=== PATIENT | male | born 1965 | race Caucasian/White ===

== ENCOUNTER 2017-03-16 09:11 | Emergency (ER) | payer SELFPAY ==
[~2017-03-16] VITALS: Ht 177.8 cm; Wt 105.0 kg
[2017-03-16] MEDS ORDERED: METHADONE40 MG PO (09:43)
[2017-03-16] MEDS ORDERED: BACTRIM DS1 TAB PO (10:14)
[2017-03-16] MEDS ORDERED: CEPHALEXIN500 MG PO (10:14)
[2017-03-16 10:17] VITALS: BP 137/86
== END 2017-03-16 10:22 | disposition home or self-care (01) | DRG 607 ==
LOC: ED 09:11
PROC: 0H9BXZZ Drainage of Right Upper Arm Skin, External Approach (ICD-10-PCS; principal; 2017-03-16)
DX: S50.361A Insect bite (nonvenomous) of right elbow, initial encounter (principal); L02.413 Cutaneous abscess of right upper limb; W57.XXXA Bitten or stung by nonvenomous insect and other nonvenomous arthropods, initial encounter; B95.62 Methicillin resistant Staphylococcus aureus infection as the cause of diseases classified elsewhere

== ENCOUNTER 2019-04-11 | Emergency (ER) | payer SELFPAY ==
[~2019-04-11] MED LIST: BACTRIM DS1 TAB PO; CEPHALEXIN500 MG PO; METHADONE40 MG PO
[2019-04-11 14:31] LABS: HEMATOCRIT 48.7 % (39.0-50.0); HEMOGLOBIN 15.5 g/dl (14.0-18.0); IMMATURE GRANULOCYTES 0.4 % (0.0-5.0); MEAN CELL VOLUME 84.8 fL CALC (80.0-100.0); MEAN CORPUSCULAR HGB CONC 31.8 g/L CALC (32.0-36.0); NEUT# 11.03 thou/uL (1.82-7.42); RED BLOOD COUNT 5.74 mill/uL (4.70-6.10)
[2019-04-11 14:32] LABS: URINE BILIRUBIN - DIPSTICK NEGATIVE (NEGATIVE); URINE BLOOD DIPSTICK NEGATIVE (NEGATIVE); URINE COLOR YELLOW; URINE GLUCOSE - DIPSTICK NEGATIVE (NEGATIVE); URINE KETONE NEGATIVE (NEGATIVE); URINE LEUK ESTERASE NEGATIVE (NEGATIVE); URINE NITRITE - DIPSTICK NEGATIVE (Negative); URINE PROTEIN - DIPSTICK NEGATIVE (NEG-TRACE); URINE SPECIFIC GRAVITY 1.025; URINE UROBILINOGEN - DIPSTICK 0.2 E.U./dL (0.2)
[2019-04-11 14:40] LABS: ALBUMIN 4.4 g/dL (3.2-5.0); ALKALINE PHOSPHATASE 102 u/l (38-126); ANION GAP 17 (6-22 (CALC)); BILIRUBIN, TOTAL 0.6 mg/dL (0.0-1.4); BUN 16 mg/dL (9-20); BUN/CREATININE RATIO 19 (12-20 (CALC)); CARBON DIOXIDE 22 mmol/l (22-30); CHLORIDE 100 mmol/l (95-108); CREATININE 0.8 mg/dL (0.7-1.3); GFR > 60 ML/MIN (>=60 (CALC)); GFR FOR AFR.AMER. > 60 ML/MIN (>=60 (CALC)); LIPASE 72 u/l (23-300); POTASSIUM 3.7 mmol/l (3.5-5.1); SGOT/AST 36 u/l (17-59); SODIUM 135 mmol/l (137-146)
[2019-04-11] MEDS ORDERED: MIRALAX3350 N1 PO ×2 (16:44)
== END 2019-04-11 17:02 | disposition home or self-care (01) | DRG 392 ==
DX: K59.00 Constipation, unspecified (principal); F17.210 Nicotine dependence, cigarettes, uncomplicated

== ENCOUNTER 2019-04-12 | Emergency (ER) | payer SELFPAY ==
[~2019-04-12] MED LIST changes: +MIRALAX3350 N1 PO
== END 2019-04-12 13:46 | disposition left against medical advice (07) | DRG 392 ==
DX: K59.00 Constipation, unspecified (principal); R16.1 Splenomegaly, not elsewhere classified; R10.9 Unspecified abdominal pain; F17.210 Nicotine dependence, cigarettes, uncomplicated; Z91.19 Patient's noncompliance with other medical treatment and regimen

== ENCOUNTER 2019-04-13 | Emergency (ER) | payer SELFPAY ==
[2019-04-13 13:16] LABS: HEMATOCRIT 46.5 % (39.0-50.0); HEMOGLOBIN 14.8 g/dl (14.0-18.0); IMMATURE GRANULOCYTES 0.2 % (0.0-5.0); MEAN CELL VOLUME 85.6 fL CALC (80.0-100.0); MEAN CORPUSCULAR HGB 27.3 pG CALC (26.0-32.0); MEAN CORPUSCULAR HGB CONC 31.8 g/L CALC (32.0-36.0); NEUT# 8.04 thou/uL (1.82-7.42); RED BLOOD COUNT 5.43 mill/uL (4.70-6.10); RED CELL DISTRI WIDTH 14.2 % (11.5-15.5)
[2019-04-13 13:32] LABS: ALBUMIN 4.4 g/dL (3.2-5.0); ALKALINE PHOSPHATASE 87 u/l (38-126); ANION GAP 18 (6-22 (CALC)); BILIRUBIN, TOTAL 0.6 mg/dL (0.0-1.4); BUN 17 mg/dL (9-20); BUN/CREATININE RATIO 18 (12-20 (CALC)); CARBON DIOXIDE 28 mmol/l (22-30); CHLORIDE 95 mmol/l (95-108); CREATININE 0.9 mg/dL (0.7-1.3); GFR > 60 ML/MIN (>=60 (CALC)); GFR FOR AFR.AMER. > 60 ML/MIN (>=60 (CALC)); POTASSIUM 4.2 mmol/l (3.5-5.1); SGOT/AST 18 u/l (17-59); SODIUM 137 mmol/l (137-146); TOTAL PROTEIN 7.8 g/dL (6.3-8.2)
== END 2019-04-13 21:52 | disposition short-term general hospital (02) | DRG 816 ==
DX: R16.1 Splenomegaly, not elsewhere classified (principal); K59.00 Constipation, unspecified; F17.210 Nicotine dependence, cigarettes, uncomplicated
CPT/HCPCS: J0131

== ENCOUNTER 2019-12-14 01:09 | Emergency (ER) | payer SELFPAY ==
[~2019-12-14] VITALS: Ht 177.8 cm; Wt 87.6 kg
[2019-12-14] MEDS ORDERED: HYDROXYZ HCL25 MG PO (01:36)
[2019-12-14] MEDS ORDERED: STERAPRED DS10 MG PO (01:36)
[2019-12-14 01:40] VITALS: BP 148/88
== END 2019-12-14 02:01 | disposition home or self-care (01) | DRG 918 ==
LOC: ED 01:09
DX: T63.481A Toxic effect of venom of other arthropod, accidental (unintentional), initial encounter (principal); F17.200 Nicotine dependence, unspecified, uncomplicated